=== PATIENT | male | born 1975 | race African-American/Black ===

== ENCOUNTER 2017-12-05 19:12 | Inpatient (IN) | payer MEDICAID ==
[~2017-12-05] VITALS: Ht 193 cm; Wt 133.0 kg
[2017-12-05] MEDS ORDERED: ACETAMINOPHEN 325MG TABLET PO ONE (20:45)
[2017-12-05 21:26] LABS: CLARITY URINE CLEAR (CLEAR); COLOR URINE YELLOW (YELLOW); KETONES URINE TRACE (NEGATIVE); LEUKOCYTE ESTERASE URINE TRACE (NEGATIVE); NITRITE URINE NEGATIVE (NEGATIVE); OCCULT BLOOD URINE NEGATIVE (NEGATIVE); PH URINE 7.5 (4.5-8.0); PROTEIN URINE 1+ (NEGATIVE)
[2017-12-05] MEDS ORDERED: ENOXAPARIN 150MG/ML SYR SUBCUT ONE (21:30)
[2017-12-05 22:11] LABS: BASOPHILS % 0.5 % (0.0-2.0); EOSINOPHILS % 0.3 % (0.0-5.0); HEMATOCRIT. 38.6 % (42.0-52.0); HEMOGLOBIN. 13.1 g/dL (14.0-18.0); LYMPHOCYTES % 9.3 % (20.0-50.0); MEAN CORPUSCULAR HEMOGLOBIN 29.6 pg (28.0-32.0); MEAN CORPUSCULAR VOLUME 87.4 fL (80.0-94.0); MEAN PLATELET VOLUME 7.7 fl (7.4-10.4); MONOCYTES % 6.7 % (2.0-8.0); NEUTROPHILS % 83.2 % (40.0-76.0); PLATELET 222 x1000/uL (130-400); RED BLOOD CELL COUNT 4.42 mill/uL (4.7-6.1); RED CELL DISTRIBUTION WIDTH 14.7 % (11.6-14.6)
[2017-12-05 22:13] LABS: CHLORIDE 108 mEq/L (98-107)
[2017-12-05] MEDS ORDERED: CEPHALEXIN 500MG CAPSULE PO ONE (22:15)
[2017-12-05 22:21] LABS: INR 1.1; PROTHROMBIN TIME 11.2 sec (9.4-11.6)
[2017-12-05] MEDS ORDERED: IPRATROPIUM/ALBUTEROL 0.5-3(2.5)MG/3ML NEB INH PRN (22:30)
[2017-12-05] MEDS ORDERED: DOCUSATE SODIUM 100MG CAPSULE PO PRN (22:30)
[2017-12-05] MEDS ORDERED: ACETAMINOPHEN 325MG TABLET PO PRN (22:30)
[2017-12-05] MEDS ORDERED: MAGNESIUM/ALUMINUM HYDROXIDE/SIMETHICONE 30ML UDC PO PRN (22:30)
[2017-12-05] MEDS ORDERED: ZOLPIDEM TARTRATE 5MG TABLET PO PRN (22:30)
[2017-12-05] MEDS ORDERED: ONDANSETRON 4MG ODT PO PRN (22:30)
[2017-12-05] MEDS ORDERED: GUAIFENESIN 200MG/10ML SUGAR FREE UDC PO PRN (22:30)
[2017-12-05] MEDS ORDERED: NA PHOS,M-B/NA PHOS,DI-BA ENEMA 118ML PR PRN (22:30)
[2017-12-05] MEDS ORDERED: CLONIDINE 0.1MG TABLET PO PRN (22:30)
[2017-12-05] MEDS ORDERED: NITROGLYCERIN 0.4MG TABLET SL SL PRN (22:30)
[2017-12-05] MEDS ORDERED: DIPHENHYDRAMINE 50MG/ML VIAL IV PRN (22:30)
[2017-12-05] MEDS ORDERED: KETOROLAC 15MG/ML VIAL IV PRN (22:30)
[2017-12-05] MEDS ORDERED: LORAZEPAM 0.5MG TABLET PO PRN (22:30)
[2017-12-06 00:05] VITALS: BP 156/96
[2017-12-06 00:15] VITALS: BP 156/96
[2017-12-06 04:13] VITALS: BP 121/83
[2017-12-06 05:47] LABS: *AMPHETAMINES SCREEN URINE NEGATIVE (NEGATIVE); *BARBITURATES SCREEN URINE NEGATIVE (NEGATIVE); *BENZODIAZEPINES SCREEN URINE NEGATIVE (NEGATIVE); *COCAINE SCREEN URINE PRESUMTIVE POSITIVE (NEGATIVE); CANNABINOID URINE SCREEN PRESUMTIVE POSITIVE (NEGATIVE); METHADONE URINE SCREEN NEGATIVE (NEGATIVE); OPIATES URINE SCREEN NEGATIVE (NEGATIVE); PHENCYCLIDINE URINE SCREEN NEGATIVE (NEGATIVE)
[2017-12-06 07:52] LABS: CREATINE KINASE 251 IU/L (39-308)
[2017-12-06 07:53] LABS: CREATINE KINASE MB FRACTION 1.4 ng/mL (0.5-3.6)
[2017-12-06 08:00] VITALS: BP 135/80
[2017-12-06] MEDS ORDERED: LISINOPRIL 20MG TABLET PO SCH (09:00)
[2017-12-06] MEDS ORDERED: ENOXAPARIN 120MG/0.8ML SYR SUBCUT SCH (09:00)
[2017-12-06] MEDS ORDERED: FAMOTIDINE 20MG TABLET PO SCH (09:00)
== END 2017-12-06 11:54 | disposition left against medical advice (07) | DRG 197 ==
LOC: ER 19:55 → 6WST 22:02 → EDBEDREQ 22:06 → ENRESERV 23:08
PROVIDERS: ADMIT Internal Medicine; ATTEND Internal Medicine
DX: I82.403 Acute embolism and thrombosis of unspecified deep veins of lower extremity, bilateral (principal); I10 Essential (primary) hypertension; E66.9 Obesity, unspecified; Z53.21 Procedure and treatment not carried out due to patient leaving prior to being seen by health care provider; F12.10 Cannabis abuse, uncomplicated; Z86.718 Personal history of other venous thrombosis and embolism; Z91.14 Patient's other noncompliance with medication regimen; Z68.35 Body mass index [BMI] 35.0-35.9, adult
CPT/HCPCS: 36415; 74018; 80053; 80305; 81003; 82550; 82553; 83036; 84484; 85025; 85610; 93970; 96372; 99285; J1650

== ENCOUNTER 2018-09-17 11:03 | Emergency (ER) | payer OTHER, MEDICAID ==
[~2018-09-17] VITALS: Ht 182.9 cm; Wt 120.0 kg
[2018-09-17 13:23] VITALS: BP 142/78
== END 2018-09-17 13:23 | disposition home or self-care (01) ==
LOC: ER 11:03
DX: Z02.89 Encounter for other administrative examinations (principal); M79.605 Pain in left leg; M79.604 Pain in right leg; I10 Essential (primary) hypertension; Z86.718 Personal history of other venous thrombosis and embolism; Z91.14 Patient's other noncompliance with medication regimen; F12.90 Cannabis use, unspecified, uncomplicated
CPT/HCPCS: 93970; 99284